=== PATIENT | female | born 1940 | race Caucasian/White ===

== ENCOUNTER 2016-11-19 10:27 | Outpatient (CLI) | payer MEDICARE ==
[~2016-11-19] VITALS: Ht 167.6 cm; Wt 48.2 kg
[2016-11-19 10:55] VITALS: BP 122/57
[2016-11-19 11:46] LABS: BASOPHILS % (AUTO) 0 % (0-10); EOSINOPHILS # (AUTO) 0.1 10^3/uL (0.0-0.3); EOSINOPHILS % (AUTO) 1 % (0-10); LYMPHOCYTES # (AUTO) 1.7 X 10^3 (1.0-4.0); LYMPHOCYTES % (AUTO) 33 % (12-44); MEAN CORPUSCULAR HEMOGLOBIN 29 PG (25-34); MEAN CORPUSCULAR HGB CONC 32 G/DL (32-36); MEAN CORPUSCULAR VOLUME 90 FL (80-99); MEAN PLATELET VOLUME 11.1 FL (7.4-10.4); MONOCYTES # (AUTO) 0.5 X 10^3 (0.0-1.0); MONOCYTES % (AUTO) 10 % (0-12); NEUTROPHILS # (AUTO) 2.8 X 10^3 (1.8-7.8); NEUTROPHILS % (AUTO) 56 % (42-75); PLATELET COUNT 197 10^3/uL (130-400); RED BLOOD COUNT 4.57 10^6/uL (4.35-5.85); RED CELL DISTRIBUTION WIDTH 15.2 % (10.0-14.5); WHITE BLOOD COUNT 5.1 10^3/uL (4.3-11.0)
[2016-11-19] MEDS ORDERED: METF500T4 PO (11:49)
[2016-11-19] MEDS ORDERED: PANT40TA3 PO (11:49)
[2016-11-19] MEDS ORDERED: LOSA100T28 PO (11:49)
[2016-11-19] MEDS ORDERED: INSU100I14 SQ ×2 (11:49)
[2016-11-19] MEDS ORDERED: ATEN25TA PO (11:49)
[2016-11-19] MEDS ORDERED: ISOS30TA3 PO (11:49)
[2016-11-19] MEDS ORDERED: HYDR-3812 PO (11:49)
[2016-11-19] MEDS ORDERED: MELO15TA39 PO (11:49)
[2016-11-19] MEDS ORDERED: ASPI-586 PO (11:49)
[2016-11-19] MEDS ORDERED: INSU100I29 SQ (11:49)
[2016-11-19] MEDS ORDERED: ALEN70TA2 PO (11:49)
[2016-11-27] MEDS ORDERED: DOCU100C37 PO (08:58)
== END 2016-11-19 12:00 ==
LOC: PREOP 10:27
PROVIDERS: ATTEND Obstetrics & Gynecology
DX: Z01.812 Encounter for preprocedural laboratory examination (principal); N81.10 Cystocele, unspecified; R32 Unspecified urinary incontinence
CPT/HCPCS: 36415; 85025; 86850; 86900; 86901; 87081

== ENCOUNTER 2016-11-26 10:18 | Day surgery (SDC) | payer MEDICARE ==
[~2016-11-26] VITALS: Ht 167.6 cm; Wt 48.2 kg
[~2016-11-26 10:18] MED LIST: ALEN70TA2 PO; ASPI-586 PO; ATEN25TA PO; HYDR-3812 PO; INSU100I14 SQ; INSU100I29 SQ; ISOS30TA3 PO; LOSA100T28 PO; MELO15TA39 PO; METF500T4 PO; PANT40TA3 PO
[2016-11-26 10:30] VITALS: BP 154/79
[2016-11-26] MEDS ORDERED: ceFAZolin 1 GM/NS 50 ML IVPB IV ONE ×2 (10:45)
[2016-11-26] MEDS ORDERED: FAMOTIDINE 20MG/2ML IV (PEPCID) IV ONE (11:15)
[2016-11-26] MEDS ORDERED: ROCURONIUM 50 MG/5 ML (ZEMURON) VIAL IV ONE (11:31)
[2016-11-26] MEDS ORDERED: LACTATED RINGERS 1,000 ML IV ONE ×2 (11:31→13:27)
[2016-11-26] MEDS ORDERED: SEVOFLURANE (ULTANE) 15 ML INHAL SOLN ONE ×9 (11:31→14:36)
[2016-11-26] MEDS ORDERED: LIDOCAINE PF 2% 5 ML (XYLOCAINE) VIAL ONE (11:31)
[2016-11-26] MEDS ORDERED: ONDANSETRON 4 MG/2 ML (SDV) Z0FRAN ONE (11:31)
[2016-11-26] MEDS ORDERED: proPOfol 200 MG/20 ML (DIPRIVAN) VIAL IV ONE (11:31)
[2016-11-26] MEDS ORDERED: fentaNYL INJECTION 100 MCG/2 ML AMP ONE (11:32)
[2016-11-26] MEDS ORDERED: MIDAZOLAM 2 MG/2 ML (VERSED) VIAL ONE (11:32)
[2016-11-26] MEDS: LACTATED RINGERS 1,000 ML IV PRN ×2 (11:35→13:15)
[2016-11-26] MEDS ORDERED: BUP/EPI 0.5% 1:200,000 (MARCAINE) 10ML VIAL IJ ONE (12:13)
[2016-11-26] MEDS ORDERED: BUPIVACAINE 0.25% 30 ML (SENSORCAINE) VIAL ONE (12:13)
[2016-11-26] MEDS ORDERED: ESTRADIOL VAGINAL CREAM 42.5 GM (ESTRACE) VG ONE (12:13)
--- NOTE | 2016-11-26 12:37 | Progress Note-Pre Operative ---
Pre-Operative Progress Note H&P Reviewed The H&P was reviewed, patient examined and no changes noted. Date Seen by Provider: Nov 26, 2016 Time Seen by Provider: 12:37 Date H&P Reviewed: Nov 26, 2016 Time H&P Reviewed: 12:37 Pre-Operative Diagnosis: uterovaginal prolapse/stress urinary incontinence HORACIO ALLRED MD Nov 26, 2016 12:37 pm
--- NOTE | 2016-11-26 12:44 | Progress Note-Post Operative ---
Post-Operative Progess Note Surgeon (s)/Electron Microprobe Operator (s) Surgeon HORACIO ALLRED MD Electron Microprobe Operator: Deborah Olivia Pre-Operative Diagnosis uterovaginal prolapse/stress urinary incontinence Post-Operative Diagnosis same Procedure & Operative Findings Date of Procedure 11/26/16 Procedure Performed/Findings TLH/BSO/ A and P vaginal repair with enterocele repair PVS and cystoscopy by Dr. Dwyer Anesthesia Type Gen. Estimated Blood Loss Estimated blood loss (mL): 100 cc Specimens/Packing Specimens Removed uterus tubes and ovaries Packing: HORACIO Oconnor MD Nov 26, 2016 12:44 pm
[2016-11-26] MEDS ORDERED: fentaNYL INJECTION 100 MCG/2 ML AMP IVP PRN ×2 (12:45→15:15)
[2016-11-26] MEDS ORDERED: BENZOCAINE/MENTHOL (DERMOPLAST) 56 ML CAN TP PRN (12:45)
[2016-11-26] MEDS ORDERED: WATER (STERILE) FOR INJ 10 ML BTL INJ ONE (12:45)
[2016-11-26] MEDS ORDERED: PATIENT MAY USE OWN MEDS, ALL MC SCH (12:45)
[2016-11-26] MEDS ORDERED: ONDANSETRON 4 MG/2 ML (SDV) Z0FRAN IVP PRN ×2 (12:45→15:15)
[2016-11-26] MEDS ORDERED: oxyCODONE/APAP 10/325MG (PERCOCET 10) TABLET PO PRN (12:45)
[2016-11-26] MEDS ORDERED: ESTROGENS CONJ IV 25 MG/5 ML (PREMARIN) VIAL IVP ONE (12:45)
--- NOTE | 2016-11-26 12:48 | HISTORY AND PHYSICAL ---
DATE OF SERVICE: CHIEF COMPLAINT: Urinary incontinence. HISTORY OF PRESENT ILLNESS: The patient is a 76-year-old white female, who reports leaking urine unconsciously. She reports that the leakage occurs with stress and with urge. She denies vaginal discharge. Denies vaginal bleeding. Denies dysuria. Denies urinary retention. Denies bowel problems. Denies diarrhea. Denies constipation. She reports she has never taken hormone replacement therapy. The patient states she has very rare spotting from the vagina. ALLERGIES: None. MEDICATIONS: Insulin, atenolol 25 mg twice a day, Mobic 15 mg p.r.n., Protonix 40 mg daily, Cozaar 100 mg daily, Imdur 30 mg daily, nitroglycerin sublingual p.r.n., metformin, and losartan. PAST MEDICAL HISTORY: Includes loss of hearing, a heart murmur that she has had throughout her life, IDDM, coronary artery disease, GERD, and osteoporosis. PAST SURGICAL HISTORY: Includes one . She had surgery for a bone spur on her right foot. She has had a trigger finger release in 2010. PAST OB HISTORY: Spontaneous vaginal deliveries in November 1962, February 1964, April 1965, June 1968, February 1972, and August 1982, at which point she had a . The other deliveries were vaginal and were uncomplicated. FRYER LINE HELPER HISTORY: Includes a menstrual formula of 13-4-28. Last Pap smear was 2013, it was normal. Her Pap smear, she reports were always normal. The last mammogram was in 2015. FAMILY HISTORY: Negative for breast, FRYER LINE HELPER cancers. She has two daughters with diabetes. The patient has a sister with colon cancer. Her father had lung cancer. A daughter has hypertension. SOCIAL HISTORY: The patient is . 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 She smokes one-half pack of cigarettes a day. She denies drug, alcohol use, and has no history of STDs. REVIEW OF SYSTEMS: As per the HPI plus she wears reading glasses. She has some degree of sleep apnea. She has arthritis. Balance of the review of systems is negative. PHYSICAL EXAMINATION: HEENT: Normal. NECK: Supple with no lymphadenopathy and no thyromegaly. ABDOMEN: Soft, nontender, and nondistended. No guarding, no rebound, and no rigidity. There is no tenderness on palpation. SKIN: Shows no rashes, no lesions, no ulcers. LYMPHATIC: Exam of the neck, axillary, and groin is negative. BREAST: Deferred. BACK: Shows no CVA tenderness. No masses and no paraspinal tenderness or rigidity. EXTREMITIES: Show no clubbing or cyanosis. There is no Allyson sign. PELVIC: Pelvic exam shows a normal internal and external genitalia that is quite atrophic but otherwise benign. There is a fairly gaping introitus. The vagina is poorly estrogenized, has a first to second degree cystocele, a second degree rectocele, and first degree enterocele, all of which increased with Valsalva. Urethra is detached and hypermobile and does have evidence of positive stress test. CERVIX: She has no cervical motion tenderness. It is normal in consistency and contour. There is no discharge, no blood. There is a moderate ectropion present. The uterus is normal in size, consistency and contour, it is freely mobile, midline, and anteverted. It is nontender and this ends over nursing home down the vaginal vault and almost to the introitus. It protrudes to and through the introitus with Valsalva. Adnexal exam is unremarkable. Rectovaginal exam is confirmatory. Ultrasound had been performed in my clinic that showed a heavily calcified anteverted uterus with quiet ovaries bilaterally and an endometrial stripe of less than 4 mm. IMPRESSION: Significant urogenital atrophy, which has been treated by starting the patient on vaginal estrogen in clinic. She has significant symptomatic uterovaginal prolapse with mixed urinary incontinence with both stress and urge components. The patient has a large rectocele, a cystocele, and a notable uterine prolapse. Surgical repairs for this patient had been fully discussed in addition to alternates to surgery including no treatment. The patient understands she can get a second opinion and have treatment elsewhere. The patient did elect to schedule for total laparoscopic hysterectomy with bilateral salpingo-oophorectomy in conjunction with anterior and posterior vaginal repairs, likely with an enterocele repair as well and with a pubovaginal sling and cystoscopy. All of the surgical risks, complications, recovery, and followup including failure of the procedures or recurrence of her prolapse have been discussed. All of her questions were answered and surgery has been scheduled for 11/26/2016. Job ID: [id number] DocumentID: [id number] Dictated Date: 11/25/2016 17:46:59 Or Nurse Manager Date: 11/25/2016 18:49:14 Dictated By: HORACIO ALLRED MD
[2016-11-26] MEDS ORDERED: WATER (STERILE) FOR INJECTION 10 ML ONE (13:53)
[2016-11-26] MEDS ORDERED: KETOROLAC 30 MG/ML VIAL ONE (13:53)
[2016-11-26] MEDS ORDERED: ESTROGENS CONJ IV 25 MG/5 ML (PREMARIN) VIAL ONE (13:54)
[2016-11-26] MEDS ORDERED: GLYCOPYRROLATE 0.2 MG/ML (ROBINUL) 2 ML VIAL ONE (14:30)
[2016-11-26] MEDS ORDERED: NEOSTIGMINE (BLOXIVERZ ) 1 MG/1ML 10 ML VIAL ONE (14:30)
--- NOTE | 2016-11-26 14:38 | Progress Note-Post Operative ---
Post-Operative Progess Note Surgeon (s)/Cable Weaver (s) Surgeon EZE KNUTSON MD Cable Weaver: BRIGIDA Pre-Operative Diagnosis YEN, OAB, ISD Post-Operative Diagnosis SAME Procedure & Operative Findings Date of Procedure 11/26/16 Procedure Performed/Findings PVS AND CYSTO Anesthesia Type GENERAL Estimated Blood Loss Estimated blood loss (mL): NEGLIGIBLE Specimens/Packing Specimens Removed N/A Packing: ESTRACE VAG PACK EZE KNUTSON MD Nov 26, 2016 2:38 pm
[2016-11-26] MEDS: KETOROLAC 15 MG/ML VIAL IVP SCH ×2 (15:14→22:18)
[2016-11-26] MEDS: morphine INJ 10 MG/ML 1ML (SYR OR VIAL) IVP PRN ×4 (15:18→15:31)
[2016-11-26] MEDS: D5 LR IV SOLUTION 1,000 ML IV SCH (17:25)
[2016-11-26] MEDS ORDERED: NON-FORMULARY MEDICATION 1 EA EA (Alendronate Sodium (Fosamax) 70 MG) PO SCH (17:30)
[2016-11-26 20:05] VITALS: BP 135/54
[2016-11-26] MEDS ORDERED: Levemir Flextouch SQ SCH (21:00)
[2016-11-27 01:30] VITALS: BP 145/66
[2016-11-27] MEDS: D5 LR IV SOLUTION 1,000 ML IV SCH (01:45)
[2016-11-27] MEDS: KETOROLAC 15 MG/ML VIAL IVP SCH (04:43)
[2016-11-27 06:35] VITALS: BP 134/61
[2016-11-27] MEDS ORDERED: PANTOPRAZOLE 40 MG (PROTONIX) TAB PO SCH (07:00)
[2016-11-27 08:10] VITALS: BP 125/65
--- NOTE | 2016-11-27 08:57 | Progress Note-Standard ---
Standard Progress Note Progress Notes/Assess & Plan Date Seen by Provider: Nov 27, 2016 Time Seen by Provider: 08:56 Progress/Assessment & Plan this patient is without complaint. She is ambulating, voiding, tolerating fairly well, has good pain control and is requesting discharge home. Vital Signs Date Time Temp Pulse Resp B/P (MAP) Pulse Ox O2 Delivery O2 Flow Rate FiO2 11/27/16 08:10 98.8 52 18 125/65 92 Room Air 11/27/16 06:35 98.0 65 20 134/61 91 Room Air 11/27/16 01:30 98.4 56 24 145/66 95 NIV CPAP 11/26/16 20:05 54 16 135/54 100 Room Air 11/26/16 18:59 Room Air 11/26/16 15:45 97.6 11/26/16 15:31 97.6 11/26/16 15:27 97.6 11/26/16 15:23 97.6 11/26/16 15:18 97.6 11/26/16 10:30 97.5 55 16 154/79 100 Room Air vital signs are stable. Patient is afebrile. The abdomen is benign. Extremities show no clubbing cyanosis. There is no Homans sign. Assessment and plan is operative day number 1 status post surgery doing well. Plan is for discharge home with follow-up in clinic. Final Diagnosis uterovaginal prolapse HORACIO ALLRED MD Nov 27, 2016 8:57 am
[2016-11-27] MEDS ORDERED: DOCU100C37 PO (08:58)
[2016-11-27] MEDS ORDERED: Meloxicam 15 MG TABLET PO SCH (09:00)
[2016-11-27] MEDS ORDERED: ASPIRIN E.C. 81 MG (ECOTRIN) TAB PO SCH (09:00)
[2016-11-27] MEDS ORDERED: ATENOLOL 25 MG (TENORMIN) TAB PO SCH (09:00)
[2016-11-27] MEDS ORDERED: DOCUSATE SODIUM 100 MG (COLACE) CAP PO SCH (09:00)
[2016-11-27] MEDS ORDERED: ISOSORBIDE MONONITRATE 30 MG (IMDUR) TAB PO SCH (09:00)
--- NOTE | 2016-11-27 09:00 | Discharge Instructions ---
Discharge Instructions Discharge Medications New, Converted or Re-Newed RX: Call to Patients Pharmacy Patient Instructions Patient Instructions: as directed Return to The Hospital For: as directed Activity & Diet Discharge Diet: No Restrictions Activity as Tolerated: No Orders-Post D/C & Referrals Follow Up Appt: return to clinic next Tuesday, December 01, 2016 at 930 a.m. for staple removal Call to make follow up appt. for patient in 4 weeks. follow-up with Dr. Dwyer per his instructions Activity: Rest for 24 hours, than as tolerated. Wound Care: May remove Band-Aid tomorrow. Replace as desired. Keep incisions clean and dry. Wash daily with soap and water. Please call in RX to patient pharmacy. Diet: As tolerated-Clear Liquids only if nauseated. Tomorrow, may shower or tub bathe as desired. No driving for 24 hours, no alcoholic beverages for 24 hours, and nothing per vagina (no tampons, douching, or intercourse) for 8 weeks. Patient to return to the clinic as soon as possible for: Temperature greater than 101F, Severe Pain, Foul discharge from incision or vagina, Excessive Bleeding (more than a period). HORACIO ALLRED MD Nov 27, 2016 9:00 am
--- NOTE | 2016-11-27 11:09 | Progress Note-Urology ---
Progress Note-Urology Progress Notes/Assess & Plan Progress/Assessment & Plan RECOVERED WELL. VOIDING ON OWN. FEELS EMPTY. MILD YEN, BETTER THAN BEFORE. WE WILL OBSERVE FOR NOW. CHECK BLADDER SCAN PVR AND DECIDE NEXT STEP Final Diagnosis INCONTINENCE, OAB, AND ISD EZE KNUTSON MD Nov 27, 2016 11:09 am
[2016-11-27] MEDS ORDERED: PHENAZOPYRIDINE 100 MG (PYRIDIUM) TABLET PO SCH (13:00)
--- NOTE | 2016-11-27 14:38 | OPERATIVE REPORT ---
DATE OF SERVICE: 11/26/2016 PREOPERATIVE DIAGNOSIS: 1. Mixed urinary incontinence. 2. Overactive bladder. 3. Intrinsic sphincter deficiency. POSTOPERATIVE DIAGNOSES: 1. Mixed urinary incontinence. 2. Overactive bladder. 3. Intrinsic sphincter deficiency. OPERATION PERFORMED: Pubovaginal sling and cystoscopy. ANESTHESIA: General. POWDER WORKER TNT: Anais. COMPLICATIONS: None. PROCEDURE: After Dr. Manzo performed the first part of the surgery that he will dictate, I went ahead and inserted a Todd catheter, draining clear urine. I passed the pubovaginal sling type device on both sides using the described technique. The sling was sitting nicely under the mid urethra with no twisting and passage of a hemostat easily between it and the underlying tissue. I removed the Todd catheter, performed cystoscopy to confirm the integrity of the bladder, ureter orifices, and urethra, and no foreign body. I left the bladder over half full to perform a manual Valsalva maneuver after removing the cystoscope and it was negative. I re-inserted the Todd catheter draining clear fluid. Estimated blood loss on my part was negligible. The patient tolerated the procedure and anesthesia well and Dr. Manzo proceeded with the rest of the surgery that he will dictate. Job ID: [id number] DocumentID: [id number] Dictated Date: 11/26/2016 14:40:16 Liner Machine Operator Helper Date: 11/27/2016 14:38:17 Dictated By: EZE KNUTSON MD
[2016-11-27] MEDS ORDERED: IBUPROFEN 800 MG (MOTRIN) TAB PO SCH (18:00)
[2016-11-27] MEDS ORDERED: TOLTERODINE LA 4 MG (DETROL) CAP PO SCH (21:00)
--- NOTE | 2016-11-28 06:59 | OPERATIVE REPORT ---
DATE OF SERVICE: 11/26/2016 PREOPERATIVE DIAGNOSIS: Uterovaginal prolapse and stress urinary incontinence. POSTOPERATIVE DIAGNOSIS: Uterovaginal prolapse and stress urinary incontinence. OPERATIVE PROCEDURE: Total laparoscopic hysterectomy with bilateral salpingo-oophorectomy followed by anterior posterior vaginal repair with enterocele repair with Dr. Dwyer concurrently performing a pubovaginal sling procedure and a cystoscopy. OPERATIVE DESCRIPTION: With the patient in the supine position under satisfactory general anesthesia, she is repositioned in the dorsal lithotomy position in the [facility] and prepped and draped in the usual fashion for abdominal and vaginal surgery. The urinary bladder was emptied with a Todd catheter to dependent drainage. A weighted speculum was placed in the posterior fornix of the vagina. Cervix was exposed and grasped anteriorly with single tooth tenaculum. The uterus was sounded to 9.5 cm with the uterine sound. The cervix was then serially dilated with Aren dilators to accommodate a uterine manipulator, which was placed using a BLAIRE II manipulator with a 6 mm x 8 cm uterine probe with 30 mm colpotomy ring and sutures of #1 Vicryl at 3 and 9 o'clock positions of the cervix to affix the cervix to the manipulator. A Todd catheter was placed and the patient brought in low dose lithotomy position. A 12 mm incision was made just superior to the umbilicus. A Veress needle was placed through the incision to the abdominal cavity and correct placement is confirmed with a water drop test. The abdomen was insufflated with 2.4 liters of carbon dioxide, then the Veress needle was removed and a 12 mm Optiview laparoscopic port placed. The patient's abdominal wall was transilluminated after placement of the laparoscope. The 8 mm incisions were made, 9 cm lateral to the umbilicus on each side. All 3 skin incisions sites were infiltrated with 0.5% Marcaine with epinephrine prior to the incision. The 8 mm ports were placed to the lateral incision under direct vision. The patient was placed in Trendelenburg allowing the bowel to split up out of the pelvis. The patient was positioned for the hysterectomy with the proper equipment. Using a vessel sealer on the right and a bipolar fenestrated grasper on the left, the pelvis was first examined. Both ovaries were atretic. The fallopian tubes were atretic as well. The patient appeared to have had a tubal sterilization remotely. Both ureters were seen to peristalse. The left ureter seemed to have a caliber almost twice that of the right one. The laparoscope was rotated. The upper abdomen was examined. There was no abnormal pathology noted there. The liver did appear little bit pale. Laparoscope was brought back to the pelvis. The right fallopian tube and ovary were grasped and elevated. The IP ligament was clamped, cauterized and divided. That was continued step-shepard across to the round ligament, then across broad ligament to the side of the uterus and down on to the cardinal ligament, allowing for removal of the tube and ovary, eventually with the uterus. Same procedure was performed on the left. Care was taken to stay well away from the ureters. The anterior lower uterine segment, peritoneum was then divided, after replacing the vessel sealer with a monopolar shear. The bladder was carefully dissected well down off of the lower uterine segment and off of the cervix. The vaginal wall was exposed over the colpotomy ring. Incision made on the colpotomy ring at 12 o'clock position. That incision would continue circumferentially first clockwise and then counterclockwise until the entire colpotomy ring was exposed. The uterus with tubes and ovaries still attached was then delivered through the vagina. The vaginal cuff was closed with 2 sutures of V-Loc Yadi sutures starting first at the right angle and continuing to mid portion of the cuff and then from the left angle in the same manner. At the angles, care was taken to include the terminus of the cardinal ligament pedicles containing the uterine artery pedicles. The ureters were again seen to peristalse well away from the sutures. There was essentially no blood in the pelvis. Procedure at this point was terminated. The operative instruments were removed under direct vision as were the ports. The abdomen was evacuated of the insufflating gas in the process of removing the port. The skin incisions were closed with lesa. The fascia at the umbilical and supraumbilical incision was closed with [id number] suture of 2-0 Vicryl. Sponge and needle counts were correct at this point. Blood loss was minimal. The patient was repositioned after the anterior and posterior vaginal repair. Todd catheter was removed from the urinary bladder. Karlos clamps were placed on the anterior vaginal wall just at the midline. The vaginal wall was opened in the midline with Metzenbaum scissors. The opening was continued to the apex of the vagina. The bladder was carefully dissected off the muscularis of the vagina back to the pubic rami bilaterally, elevating the bladder and lengthening urethra by placing a single suture of 2-0 Vicryl under the urethra, then Dr. Dwyer assumed care of the patient to place a pubovaginal sling and perform cystoscopy. I remained to assist during his portion of the procedure. After completion of his portion of the procedure, I resumed care of the patient and resected the redundant anterior vaginal wall muscularis mucosa and closed the vaginal wall with a running locked suture of 2-0 Vicryl Rapide. The posterior repair was now affected by placing Karlos clamps on the perineum and the hymenal ring at 5 and 7 o'clock position. The inverted triangle of skin was removed from the perineal body and an upright triangle from the posterior vaginal floor using very careful and meticulous dissection as there was minimal separation between the rectal wall and the posterior vaginal wall. At this point, the rectovaginal septum was comprised of just those 2 layers of tissue with the vaginal wall dissected carefully off of the adventitial surface of the rectal wall and then the rectovaginal space was entered above that and dissected to the apex of the rectovaginal space. There was a small enterocele there that was reduced and then plicated with 2-0 Vicryl pursestring sutures. Additional sutures of 2-0 Vicryl were used to restore the perineal body and reduce the rectum back under the perineal body and restore the rectovaginal septum. The additional sutures of 2-0 Vicryl were used to restore the perineal body and then the redundant posterior vaginal wall muscularis mucosa was removed sharply. The vaginal wall was closed with a running suture of 3-0 Vicryl Rapide that was continued down on the perineal body on the back of the subcutaneous to the hymenal ring where the suture was tied. Digital rectal exam confirmed no stricture or stenosis of the rectum and no sutures into or through the rectal mucosa. The vagina was then filled with Estrace vaginal cream and a pack of Kerlix gauze was placed. Sponge and needle counts were correct. Estimated blood loss was around 100 mL. The vagina was then filled with Estrace vaginal cream and a gauze placed. The Todd catheter was left to dependent drainage. The patient was now uneventfully awakened from general anesthesia and transferred to recovery room in stable condition with plans for transfer to the floor PAR. Job ID: [id number] DocumentID: [id number] Dictated Date: 11/26/2016 14:59:08 Copra Sampler Date: 11/27/2016 17:58:18 Dictated By: HORACIO ALLRED MD
[2016-11-28] MEDS ORDERED: metFORMIN 500 MG (GLUCOPHAGE) TAB PO SCH (17:00)
== END 2016-11-27 11:45 | disposition home or self-care (01) ==
LOC: SDC 10:18 → WS 16:20 → SDC 11-27 11:45
PROVIDERS: ATTEND Obstetrics & Gynecology
DX: N81.4 Uterovaginal prolapse, unspecified (principal); N80.0 Endometriosis of uterus; N84.1 Polyp of cervix uteri; N94.89 Other specified conditions associated with female genital organs and menstrual cycle; N39.3 Stress incontinence (female) (male); R01.1 Cardiac murmur, unspecified; E11.9 Type 2 diabetes mellitus without complications; I25.10 Atherosclerotic heart disease of native coronary artery without angina pectoris; K21.9 Gastro-esophageal reflux disease without esophagitis; M81.0 Age-related osteoporosis without current pathological fracture; F17.210 Nicotine dependence, cigarettes, uncomplicated; Z79.4 Long term (current) use of insulin; Z79.84 Long term (current) use of oral hypoglycemic drugs; Z79.899 Other long term (current) drug therapy
CPT/HCPCS: 82962; 94664